=== PATIENT | female | born 1970 | race Two or more races ===

== ENCOUNTER 2017-01-20 19:31 | Emergency (ER) | payer SELFPAY ==
[2017-01-20 23:33] LABS: BASOPHIL % 0.4 % (0-2); PLATELET COUNT 209 x10^3mcL (130-400); RED CELL DISTRIBUTION WIDTH 13.8 % (11.5-14.5)
[2017-01-20 23:53] LABS: CALCIUM 8.1 mg/dL (8.5-10.1); CARBON DIOXIDE 25.7 mmol/L (21-32); CHLORIDE SERUM 107 mmol/L (98-107); CREATININE SERUM 0.8 mg/dL (0.6-1.0); GFR1 > 60 mL/min; GLUCOSE SERUM 97 mg/dL (74-106); POTASSIUM SERUM 3.8 mmol/L (3.5-5.1); SODIUM SERUM 140 mmol/L (136-145)
[2017-01-20 23:58] LABS: ALBUMIN 3.7 g/dL (3.4-5.0); ALKALINE PHOSPHATASE 73 U/L (46-116); ALT/SGPT 25 U/L (14-59); AST/SGOT 24 U/L (15-37); BILIRUBIN TOTAL 0.4 mg/dL (0.20-1.00); TOTAL PROTEIN, SERUM 7.2 g/dL (6.4-8.2)
[2017-01-21 02:07] VITALS: BP 148/99
== END 2017-01-21 02:07 | disposition home or self-care (01) ==
LOC: ED 19:31
PROVIDERS: Specialist
DX: N89.8 Other specified noninflammatory disorders of vagina (principal); R10.2 Pelvic and perineal pain; I10 Essential (primary) hypertension
CPT/HCPCS: 36415; 87491; 87591; J0696; J1885; J3490; J7030

== ENCOUNTER 2019-06-17 11:35 | Emergency (ER) | payer SELFPAY ==
[~2019-06-17] VITALS: Ht 162.6 cm; Wt 67.1 kg
[2019-06-17 11:53] VITALS: Ht 162.6 cm; Wt 67.1 kg
[2019-06-17 13:38] LABS: BASOPHIL % 0.7 % (0-2); PLATELET COUNT 238 x10^3mcL (130-400); RED CELL DISTRIBUTION WIDTH 16.1 % (11.5-14.5)
[2019-06-17 13:44] LABS: CALCIUM 9.1 mg/dL (8.5-10.1); CARBON DIOXIDE 29.7 mmol/L (21-32); CHLORIDE SERUM 103 mmol/L (98-107); CREATININE SERUM 0.8 mg/dL (0.6-1.0); GFR1 > 60 mL/min; GLUCOSE SERUM 87 mg/dL (74-106); POTASSIUM SERUM 4.5 mmol/L (3.5-5.1); SODIUM SERUM 140 mmol/L (136-145)
[2019-06-17 13:48] LABS: ALBUMIN 4.3 g/dL (3.4-5.0); ALKALINE PHOSPHATASE 79 U/L (46-116); ALT/SGPT 70 U/L (14-59); AST/SGOT 50 U/L (15-37); BILIRUBIN TOTAL 0.4 mg/dL (0.20-1.00)
[2019-06-17 14:12] LABS: TOTAL PROTEIN, SERUM 8.4 g/dL (6.4-8.2)
[2019-06-17 15:14] LABS: microscopic required? NO
[2019-06-17 15:21] LABS: UA SPECIFIC GRAVITY <=1.005 (1.005-1.035); urine erythrocyte NEGATIVE (NEGATIVE)
[2019-06-17 15:31] LABS: AMPHETAMINE QUAL UR NONE DETECTED (See below)
[2019-06-17 15:38] LABS: HDL CHOLESTEROL 43 mg/dL (40-60); LIPASE 334 IU/L (73-393)
[2019-06-17 15:44] LABS: CHOLESTEROL 227 mg/dL (<200)
[2019-06-17 17:43] VITALS: BP 104/59
== END 2019-06-17 17:13 | disposition home or self-care (01) ==
LOC: ED 11:35
PROVIDERS: Emergency Medicine
DX: K42.9 Umbilical hernia without obstruction or gangrene (principal); R10.13 Epigastric pain; M54.9 Dorsalgia, unspecified; I10 Essential (primary) hypertension
CPT/HCPCS: 36415; 83880; Q0092; Q9967

== ENCOUNTER 2020-04-12 19:30 | Emergency (ER) | payer MEDICAID ==
[~2020-04-12] VITALS: Ht 157.5 cm; Wt 67.4 kg
[2020-04-12 19:57] VITALS: Ht 157.5 cm; Wt 67.4 kg
[2020-04-12 21:21] LABS: CALCIUM 8.2 mg/dL (8.5-10.1); CARBON DIOXIDE 28.3 mmol/L (21-32); CHLORIDE SERUM 102 mmol/L (98-107); CREATININE SERUM 0.9 mg/dL (0.6-1.0); GFR1 > 60 mL/min; GLUCOSE SERUM 104 mg/dL (74-106); POTASSIUM SERUM 3.7 mmol/L (3.5-5.1); SODIUM SERUM 138 mmol/L (136-145)
[2020-04-12 21:25] LABS: ALBUMIN 3.9 g/dL (3.4-5.0); ALKALINE PHOSPHATASE 82 U/L (46-116); ALT/SGPT 58 U/L (14-59); AST/SGOT 42 U/L (15-37); BILIRUBIN TOTAL 0.3 mg/dL (0.20-1.00); TOTAL PROTEIN, SERUM 7.2 g/dL (6.4-8.2)
[2020-04-12 22:33] VITALS: BP 153/78
== END 2020-04-12 22:33 | disposition home or self-care (01) ==
LOC: ED 19:30
PROVIDERS: Emergency Medicine
DX: I10 Essential (primary) hypertension (principal); Z98.890 Other specified postprocedural states

== ENCOUNTER 2020-06-10 14:48 | Emergency (ER) | payer MEDICAID ==
[~2020-06-10] VITALS: Ht 162.6 cm; Wt 65.8 kg
[2020-06-10 15:34] VITALS: BP 117/56; Ht 162.6 cm; Wt 65.8 kg
== END 2020-06-10 17:59 | disposition home or self-care (01) ==
LOC: ED 14:48
DX: R30.0 Dysuria (principal); R10.13 Epigastric pain; I10 Essential (primary) hypertension; R35.0 Frequency of micturition; Z98.890 Other specified postprocedural states

== ENCOUNTER 2020-08-09 12:34 | Emergency (ER) | payer MEDICAID ==
[~2020-08-09] VITALS: Ht 162.6 cm; Wt 74.8 kg
[2020-08-09 12:50] VITALS: BP 130/72; Ht 162.6 cm; Wt 74.8 kg
[2020-08-09] MEDS ORDERED: NAPROXEN375 MG PO (13:16)
[2020-08-09] MEDS ORDERED: ZESTRIL20 MG PO (13:16)
== END 2020-08-09 13:53 | disposition home or self-care (01) ==
LOC: ED 12:34
DX: G44.209 Tension-type headache, unspecified, not intractable (principal); I10 Essential (primary) hypertension; Z98.890 Other specified postprocedural states
CPT/HCPCS: J1885